=== PATIENT | female | born 1990 | race Caucasian/White ===

== ENCOUNTER 2018-06-29 19:28 | Emergency (ER) | payer OTHER ==
--- NOTE | 2018-06-29 20:40 | ED Physician Documentation ---
PD HPI SYNCOPE - Stated complaint Stated Complaint: SEIZURES / 18WKS PREG - Chief complaint Chief Complaint: Neuro - History obtained from History obtained from: Patient - History of Present Illness Witnessed: Witnessed Timing - onset: Other (tonight, approximately 30-40 minutes [employer]) Duration: Seconds Preceding symptoms: Vision changes, Nausea / vomiting, Light headed Associated symptoms: No: Incontinant of urine, Incontinant of stool, Headache, Chest pain Injury occurred: None Pain level max: 0 Pain level now: 0 Similar symptoms before: No diagnosis (has had previous episodes without diagnosis (also many episodes of syncope when she was a child with w/u including EEG, no diagnosis was achieved)) Recently seen: Not recently seen - Additional information Additional information: approximately 18 weeks (has had US in this showing IUP, per patient). Tonight, while walking in her kitchen, patient experienced nausea, lightheadedness, followed by "black spots" in vision. She sat down and told her she wasn't feeling well. He witnessed her then lose consciousness, appeared to stiffen but he prevented her from falling from the chair. She regained consciousness within 20-30 seconds; she recalls hearing him calling her name as if she was in a dream, and she rapidly returned to normal/baseline level of consciousness. had called 911 while patient had lost consciousness. She is asymptomatic on this evaluation Review of Systems Constitutional: reports: Reviewed and negative Eyes: reports: Decreased vision (resolved). denies: Loss of vision, Photophobia Cardiac: reports: Reviewed and negative Respiratory: reports: Reviewed and negative GI: reports: Nausea. denies: Abdominal Pain, Vomiting : denies: Incontinent Neurologic: reports: Generalized weakness (resolved), Syncope. denies: Focal weakness, Numbness, Headache PD PAST MEDICAL HISTORY - Past Medical History Past Medical History: No Psych: Anxiety - Past Surgical History Past Surgical History: Yes HEENT: Other - Allergies Allergies/Adverse Reactions: Allergies Allergy/AdvReac Type Severity Reaction Status Date / Time No Known Drug Allergies Allergy Verified 06/29/18 19:37 - Social History Does the pt smoke?: No Smoking Status: Never smoker Does the pt drink ETOH?: No Does the pt have substance abuse?: No - Immunizations Immunizations are current?: Yes - POLST Patient has POLST: No PD ED PE NORMAL - Vitals Vital signs reviewed: Yes - General General: Alert and oriented X 3, No acute distress, Well developed/nourished - HEENT HEENT: PERRL, EOMI, Moist mucous membranes - Cardiac Cardiac: RRR, No murmur, No gallop, No rub - Respiratory Respiratory: No respiratory distress, Clear bilaterally - Abdomen Abdomen: Soft, Non tender - Derm Derm: Normal color, Warm and dry - Extremities Extremities: No edema - Neuro Neuro: Alert and oriented X 3, 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 2-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, No motor deficit, No sensory deficit, Normal speech Eye Opening: Spontaneous Motor: Obeys Commands Verbal: Oriented GCS Score: 15 Results - Vitals Vitals: Vital Signs - 24 hr 06/29/18 19:38 Temperature 37.2 C Heart Rate 87 Respiratory 16 Rate Blood Pressure 118/74 O2 Saturation 100 Oxygen O2 Source Room air PD MEDICAL DECISION MAKING - ED course Complexity details: reviewed results, re-evaluated patient, considered differential, d/w patient, d/w family ED course: RN performed bedside FHT, rate 140s Departure - Departure Disposition: 01 Home, Self Care Clinical Impression: Syncope, Condition: Good Instructions: ED Dizziness Syncope Fainting W Pre Follow-Up: CAMERON INFANTE [Primary Care Provider] - Discharge Date/Time: 06/29/18 23:00
[2018-06-29 21:35] LABS: BASOPHILS % (AUTO) 0.2 %; EOSINOPHILS # (AUTO) 0.1 10^3/uL (0.0-0.7); HGB - HEMOGLOBIN 10.9 g/dL (12.0-16.0); LYMPHOCYTES # (AUTO) 0.9 10^3/uL (1.5-3.5); MEAN CORPUSCULAR HEMOGLOBIN 31.7 pg (27.0-31.0); MEAN CORPUSCULAR HGB CONC 35.2 g/dL (32.0-36.0); MEAN CORPUSCULAR VOLUME 90.3 fL (81.0-99.0); MEAN PLATELET VOLUME 8.3 fL (7.9-10.8); MONOCYTES # (AUTO) 0.3 10^3/uL (0.0-1.0); MONOCYTES % (AUTO) 4.1 %; NEUTROPHILS # (AUTO) 6.9 10^3/uL (1.5-6.6); NEUTROPHILS % (AUTO) 83.7 %; PLT - PLATELET COUNT 182 10^3/uL (130-450); RED BLOOD COUNT 3.43 10^6/uL (4.20-5.40); RED CELL DISTRIBUTION WIDTH 12.7 % (12.0-15.0); WHITE BLOOD COUNT 8.2 x10^3/uL (4.8-10.8)
[2018-06-29 21:42] LABS: CALCIUM 8.4 mg/dL (8.5-10.3); CREATININE 0.5 mg/dL (0.4-1.0)
[2018-06-29 22:34] VITALS: BP 111/86
[2018-06-29] MEDS ORDERED: POTASSIUM BICARB 25 MEQ TABLET PO STA (22:46)
== END 2018-06-29 23:00 | disposition home or self-care (01) ==
LOC: EDBD → ED 19:28
DX: O99.89 Other specified diseases and conditions complicating pregnancy, childbirth and the puerperium (principal); R55 Syncope and collapse; Z3A.18 18 weeks gestation of pregnancy
CPT/HCPCS: 36415; 80048; 85025; 99283; A9270

== ENCOUNTER 2018-12-19 13:10 | Emergency (ER) | payer OTHER ==
--- NOTE | 2018-12-19 13:53 | ED Physician Documentation ---
PD HPI FEMALE - Stated complaint Stated Complaint: FEMALE /POST CHILD - Chief complaint Chief Complaint: Abd Pain - History obtained from History obtained from: Patient PD PAST MEDICAL HISTORY - Past Medical History Psych: Anxiety - Past Surgical History Past Surgical History: Yes HEENT: Other - Present Medications Home Medications: Ambulatory Orders Medication Instructions Recorded Confirmed Amox/Clav 875/125 [Augmentin 1 tab PO BID 12/19/18 12/19/18 875/125] Pnv No.121/Iron/Folic Acid 1 tab PO DAILY 12/19/18 12/19/18 [ Multivitamin Tablet] Sertraline [Zoloft] 1 tab PO DAILY 12/19/18 12/19/18 - Allergies Allergies/Adverse Reactions: Allergies Allergy/AdvReac Type Severity Reaction Status Date / Time No Known Drug Allergies Allergy Verified 12/19/18 13:17 - Social History Does the pt smoke?: No Smoking Status: Never smoker Does the pt drink ETOH?: No Does the pt have substance abuse?: No - Immunizations Immunizations are current?: Yes - POLST Patient has POLST: No Results - Vitals Vitals: Vital Signs - 24 hr 12/19/18 13:15 Temperature 37.1 C Heart Rate 82 Respiratory 18 Rate Blood Pressure 132/97 H O2 Saturation 100 Oxygen O2 Source Room air
[2018-12-19 13:58] LABS: BASOPHILS % (AUTO) 0.3 %; EOSINOPHILS # (AUTO) 0.2 10^3/uL (0.0-0.7); EOSINOPHILS % (AUTO) 4.3 %; HGB - HEMOGLOBIN 12.6 g/dL (12.0-16.0); LYMPHOCYTES # (AUTO) 1.1 10^3/uL (1.5-3.5); LYMPHOCYTES % (AUTO) 24.2 %; MEAN CORPUSCULAR HEMOGLOBIN 27.1 pg (27.0-31.0); MEAN CORPUSCULAR HGB CONC 32.5 g/dL (32.0-36.0); MEAN CORPUSCULAR VOLUME 83.5 fL (81.0-99.0); MONOCYTES # (AUTO) 0.3 10^3/uL (0.0-1.0); MONOCYTES % (AUTO) 6.4 %; NEUTROPHILS % (AUTO) 64.8 %; PLT - PLATELET COUNT 253 10^3/uL (130-450); RED BLOOD COUNT 4.64 10^6/uL (4.20-5.40); RED CELL DISTRIBUTION WIDTH 15.3 % (12.0-15.0); WHITE BLOOD COUNT 4.7 x10^3/uL (4.8-10.8)
[2018-12-19 14:06] LABS: INR 1.1 (0.8-1.2); PT - PROTHROMBIN TIME 12.1 secs (9.9-12.6)
[2018-12-19 14:11] LABS: ALBUMIN/GLOBULIN RATIO 1.1 (1.0-2.2); BILIRUBIN,TOTAL 0.7 mg/dL (0.2-1.0); CALCIUM 9.2 mg/dL (8.5-10.3); CREATININE 0.7 mg/dL (0.4-1.0); TOTAL PROTEIN 7.8 g/dL (6.7-8.2)
[2018-12-19 14:13] LABS: PARTIAL THROMBOPLASTIN TIME 30.7 secs (24.9-33.3)
[2018-12-19 14:29] LABS: BILIRUBIN,URINE NEGATIVE (NEGATIVE); GLUCOSE, URINE (UA) NEGATIVE (NEGATIVE); KETONES,URINE (UA) NEGATIVE (NEGATIVE); LEUKOCYTE ESTERASE, URINE NEGATIVE (NEGATIVE); NITRITE,URINE NEGATIVE (NEGATIVE); OCCULT BLOOD,URINE LARGE (NEGATIVE); PH,URINE 6.5 PH (5.0-7.5); PROTEIN,URINE NEGATIVE (NEGATIVE); UROBILINOGEN,URINE 0.2 (NORMAL) E.U./dL (NORMAL)
[2018-12-19 14:44] LABS: CLARITY,URINE HAZY (CLEAR)
[2018-12-19 14:45] LABS: BACTERIA,URINE Rare /HPF (None Seen); RBC,URINE TNTC /HPF (0-5); SQUAMOUS EPITHELIAL CELL,UR RARE Squamous (<= Few)
--- NOTE | 2018-12-19 14:56 | ED Physician Documentation ---
PD HPI FEMALE - Stated complaint Stated Complaint: FEMALE /POST CHILD - Chief complaint Chief Complaint: Abd Pain - History obtained from History obtained from: Patient - History of Present Illness Pain level max: 2 Pain level max: 0 Associated symptoms: No: Fever, Back pain, Pelvic pain, Vaginal discharge, Dysuria - Additional information Additional information: 28-year-old female, 3 para 2 has approximate 4 weeks from a normal spontaneous vaginal delivery. She has had intermittent bleeding since that time. Saw her OB yesterday, normal ultrasound and normal pelvic exam. Had another gush of bleeding last night. Now only a small trickle/spotting. No fevers. No abdominal tenderness. No discharge. Nothing makes it better or worse. Review of Systems Constitutional: denies: Fever GI: denies: Vomiting Skin: denies: Rash Musculoskeletal: denies: Neck pain, Back pain Neurologic: denies: Headache PD PAST MEDICAL HISTORY - Past Medical History Past Medical History: Yes Psych: Anxiety - Past Surgical History Past Surgical History: Yes HEENT: Other - Present Medications Home Medications: Ambulatory Orders Medication Instructions Recorded Confirmed Amox/Clav 875/125 [Augmentin 1 tab PO BID 12/19/18 12/19/18 875/125] Pnv No.121/Iron/Folic Acid 1 tab PO DAILY 12/19/18 12/19/18 [ Multivitamin Tablet] Sertraline [Zoloft] 1 tab PO DAILY 12/19/18 12/19/18 - Allergies Allergies/Adverse Reactions: Allergies Allergy/AdvReac Type Severity Reaction Status Date / Time No Known Drug Allergies Allergy Verified 12/19/18 13:17 - Social History Does the pt smoke?: No Smoking Status: Never smoker Does the pt drink ETOH?: No Does the pt have substance abuse?: No - Immunizations Immunizations are current?: Yes - POLST Patient has POLST: No PD ED PE NORMAL - Vitals Vital signs reviewed: Yes - General General: Alert and oriented X 3, No acute distress, Well developed/nourished - HEENT HEENT: Moist mucous membranes - Neck Neck: Supple, no meningeal sign - Cardiac Cardiac: RRR - Respiratory Respiratory: No respiratory distress, Clear bilaterally - Abdomen Abdomen: Soft, Non tender, Non distended - Female Female : Pt declined - Derm Derm: Warm and dry - Neuro Neuro: Alert and oriented X 3 - Psych Psych: Normal mood, Normal affect Results - Vitals Vitals: Vital Signs - 24 hr 12/19/18 12/19/18 13:15 15:06 Temperature 37.1 C 36.3 C L Heart Rate 82 75 Respiratory 18 18 Rate Blood Pressure 132/97 H 131/91 H O2 Saturation 100 100 Oxygen O2 Source Room air - Labs Labs: Laboratory Tests 12/19/18 12/19/18 12/19/18 13:30 13:50 13:50 WBC 4.7 L RBC 4.64 Hgb 12.6 Hct 38.7 MCV 83.5 MCH 27.1 MCHC 32.5 RDW 15.3 H Plt Count 253 MPV 8.0 Neut # (Auto) 3.0 Lymph # (Auto) 1.1 L [place] # (Auto) 0.3 Eos # (Auto) 0.2 Baso # (Auto) 0.0 Absolute Nucleated RBC 0.00 Nucleated RBC % 0.0 PT 12.1 INR 1.1 APTT 30.7 Sodium Potassium Chloride Carbon Dioxide Anion Gap BUN Creatinine Estimated GFR (MDRD) Glucose Calcium Total Bilirubin AST ALT Alkaline Phosphatase Total Protein Albumin Globulin Albumin/Globulin Ratio Lipase Urine Color YELLOW Urine Clarity HAZY Urine pH 6.5 Ur Specific [place] 1.010 Urine Protein NEGATIVE Urine Glucose (UA) NEGATIVE Urine Ketones NEGATIVE Urine Occult Blood LARGE H Urine Nitrite NEGATIVE Urine Bilirubin NEGATIVE Urine Urobilinogen 0.2 (NORMAL) Ur Leukocyte Esterase NEGATIVE Urine RBC TNTC H Urine WBC 0-3 Ur Squamous Epith Cells RARE Squamous Urine Bacteria Rare Ur Microscopic Review INDICATED Urine Culture Comments NOT INDICATED 12/19/18 13:50 WBC RBC Hgb Hct MCV MCH MCHC RDW Plt Count MPV Neut # (Auto) Lymph # (Auto) [place] # (Auto) Eos # (Auto) Baso # (Auto) Absolute Nucleated RBC Nucleated RBC % PT INR APTT Sodium 138 Potassium 4.2 Chloride 101 Carbon Dioxide 27 Anion Gap 10.0 BUN 10 Creatinine 0.7 Estimated GFR (MDRD) 98 Glucose 90 Calcium 9.2 Total Bilirubin 0.7 AST 28 ALT 30 Alkaline Phosphatase 73 Total Protein 7.8 Albumin 4.0 Globulin 3.8 Albumin/Globulin Ratio 1.1 Lipase 42 Urine Color Urine Clarity Urine pH Ur Specific [place] Urine Protein Urine Glucose (UA) Urine Ketones Urine Occult Blood Urine Nitrite Urine Bilirubin Urine Urobilinogen Ur Leukocyte Esterase Urine RBC Urine WBC Ur Squamous Epith Cells Urine Bacteria Ur Microscopic Review Urine Culture Comments PD MEDICAL DECISION MAKING - ED course Complexity details: reviewed results, re-evaluated patient, considered differential, d/w patient ED course: 28-year-old female with dysfunctional uterine bleeding approximately 4 weeks status post normal spontaneous vaginal delivery. Normal ultrasound yesterday without retained products of conception. Normal pelvic exam. We will not repeat these today. Blood counts are stable. Vital signs are stable. We will continue supportive care. Patient counseled regarding signs and symptoms for which I believe and urgent re-evaluation would be necessary. Patient with good understanding of and agreement to plan and is comfortable going home at this time This document was made in part using voice recognition software. While efforts are made to proofread this document, sound alike and grammatical errors may occur. Departure - Departure Disposition: 01 Home, Self Care Clinical Impression: Dysfunctional uterine bleeding Condition: Good Instructions: ED Bleed Irregular Vaginal Follow-Up: CAMERON INFANTE [Primary Care Provider] - Within 1 week SHENG CALLEJAS [Physician No Access] - Comments: Follow-up with your doctor for further care. Return if you worsen. Your blood counts are normal today. Discharge Date/Time: 12/19/18 15:07
[2018-12-19 15:06] VITALS: BP 131/91
== END 2018-12-19 15:07 | disposition home or self-care (01) ==
LOC: ED 13:10
DX: O72.1 Other immediate postpartum hemorrhage (principal); N93.8 Other specified abnormal uterine and vaginal bleeding
CPT/HCPCS: 36415; 80053; 81001; 81003; 83690; 85025; 85610; 85730; 86850; 86900; 86901; 87086; 99282; 99283

== ENCOUNTER 2019-05-05 19:01 | Emergency (ER) | payer OTHER ==
[2019-05-05 19:26] LABS: BILIRUBIN,URINE NEGATIVE (NEGATIVE); GLUCOSE, URINE (UA) NEGATIVE (NEGATIVE); KETONES,URINE (UA) NEGATIVE (NEGATIVE); LEUKOCYTE ESTERASE, URINE NEGATIVE (NEGATIVE); NITRITE,URINE NEGATIVE (NEGATIVE); OCCULT BLOOD,URINE NEGATIVE (NEGATIVE); PH,URINE 6.5 PH (5.0-7.5); PROTEIN,URINE NEGATIVE (NEGATIVE); UROBILINOGEN,URINE 0.2 (NORMAL) E.U./dL (NORMAL)
[2019-05-05 19:28] LABS: CLARITY,URINE CLEAR (CLEAR); HCG UR QUAL NEGATIVE
--- NOTE | 2019-05-05 21:49 | ED Physician Documentation ---
History of Present Illness - Stated complaint Stated Complaint: FEMALE AND LEFT SHOULDER PX - Chief complaint Chief Complaint: Abd Pain - Additonal information Additional information: This is a 29-year-old female who presents with 4 to 5 days of left upper quadrant pain, which intermittently will radiate up to her shoulder. Patient states that the pain began in absence of any known trauma or inciting event. It is constant dull and located in left upper quadrant. She sometimes feels like there is something moving inside of her abdomen. She denies vomiting, has felt slightly nauseated. No dysuria, no lower abdominal pain. The discomfort radiates up to her chest and shoulder intermittently, but this radiation will resolve completely. Her breathing feels fine, she denies cough or hemoptysis. No history of blood clots or heart problems. Review of Systems Constitutional: denies: Fever Respiratory: denies: Dyspnea GI: reports: Abdominal Pain : denies: Dysuria PD PAST MEDICAL HISTORY - Past Medical History Past Medical History: Yes Cardiovascular: Other Psych: Anxiety - Past Surgical History Past Surgical History: Yes HEENT: Other - Present Medications Home Medications: Ambulatory Orders Medication Instructions Recorded Confirmed Amox/Clav 875/125 [Augmentin 1 tab PO BID 12/19/18 12/19/18 875/125] Pnv No.121/Iron/Folic Acid 1 tab PO DAILY 12/19/18 12/19/18 [ Multivitamin Tablet] Sertraline [Zoloft] 1 tab PO DAILY 12/19/18 12/19/18 RX: raNITIdine [Zantac] 150 mg PO DAILY #14 tablet 05/05/19 - Allergies Allergies/Adverse Reactions: Allergies Allergy/AdvReac Type Severity Reaction Status Date / Time No Known Drug Allergies Allergy Verified 12/19/18 13:17 - Social History Does the pt smoke?: No Smoking Status: Never smoker Does the pt drink ETOH?: No Does the pt have substance abuse?: No - Immunizations Immunizations are current?: Yes - POLST Patient has POLST: No PD ED PE NORMAL - Vitals Vital signs reviewed: Yes - General General: Alert and oriented X 3, No acute distress - HEENT HEENT: PERRL - Neck Neck: Supple, no meningeal sign - Cardiac Cardiac: RRR, No murmur - Respiratory Respiratory: Clear bilaterally - Abdomen Abdomen: Soft, Non distended, Other (Mild left upper quadrant tenderness. Otherwise non-tender. No guarding.) - Derm Derm: Warm and dry - Extremities Extremities: No deformity - Neuro Neuro: Alert and oriented X 3 - Psych Psych: Normal mood, Normal affect Results - Vitals Vitals: Vital Signs - 24 hr 05/05/19 05/05/19 05/05/19 19:07 21:10 23:00 Temperature 37.2 C Heart Rate 82 80 85 Respiratory 14 16 16 Rate Blood Pressure 132/93 H 143/98 H 138/89 H O2 Saturation 100 99 98 05/05/19 23:15 Temperature 36.2 C L Heart Rate 83 Respiratory 21 Rate Blood Pressure 113/62 O2 Saturation 99 Oxygen O2 Source Room air - EKG (time done) 22:07 Other comments: Other comments (Rate 75, rhythm sinus, axis normal, there is no ST segment elevation or depression, no abnormal T wave inversions, intervals are within normal limits.) - Labs Labs: Laboratory Tests 05/05/19 05/05/19 05/05/19 19:15 22:06 22:06 WBC 6.6 RBC 4.36 Hgb 12.4 Hct 38.5 MCV 88.3 MCH 28.4 MCHC 32.2 RDW 14.2 Plt Count 235 MPV 10.9 H Neut # (Auto) 4.3 Lymph # (Auto) 1.7 [place] # (Auto) 0.5 Eos # (Auto) 0.1 Baso # (Auto) 0.0 Absolute Nucleated RBC 0.00 Nucleated RBC % 0.0 Sodium 138 Potassium 3.8 Chloride 105 Carbon Dioxide 23 Anion Gap 10.0 BUN 12 Creatinine 0.6 Estimated GFR (MDRD) 117 Glucose 106 H Calcium 9.1 Total Bilirubin 0.3 AST 16 ALT 11 Alkaline Phosphatase 47 Total Protein 7.6 Albumin 3.6 Globulin 4.0 Albumin/Globulin Ratio 0.9 L Lipase 38 Urine Color YELLOW Urine Clarity CLEAR Urine pH 6.5 Ur Specific [place] 1.020 Urine Protein NEGATIVE Urine Glucose (UA) NEGATIVE Urine Ketones NEGATIVE Urine Occult Blood NEGATIVE Urine Nitrite NEGATIVE Urine Bilirubin NEGATIVE Urine Urobilinogen 0.2 (NORMAL) Ur Leukocyte Esterase NEGATIVE Ur Microscopic Review NOT INDICATED Urine Culture Comments NOT INDICATED Urine HCG, Qual NEGATIVE - Rads (name of study) Chest Radiology: Other (No acute abnormality) PD MEDICAL DECISION MAKING - ED course Complexity details: considered differential (gastritis, GERD, pancreatitis, ACS, pneumonia, fracture, muscle strain, enteritis, pneumothorax) ED course: On exam patient is well appearing, her abdomen is benign with mild LUQ tenderness. Vital signs are unremarkable. CBC, CMP, lipase, HCG, unremarkable. EKG shows no signs of dysrhythmia or ischemia, and CXR is unrevealing. Her history of pain that resolves completely is not compatible with PE, and she has no signs of PE or DVT on exam. She is very low risk for CAD and her EKG is reassuring. I discussed that the cause of her pain is unclear, though gastritis/PUD/GERD or musculoskeletal cause is possible. I recommended a trial of ranitidine as well as tylenol for discomfort, and close follow up with her PCP. I reviewed return precautions and patient was discharged home. Departure - Departure Disposition: 01 Home, Self Care Clinical Impression: Abdominal pain Condition: Good Instructions: ED Abdominal Pain Unkn Cause Follow-Up: CAMERON INFANTE [Primary Care Provider] - Within 1 week Prescriptions: RX: raNITIdine [Zantac] 150 mg PO DAILY #14 tablet Comments: You were seen today for abdominal pain, that radiates up to your chest. Our work-up here was reassuring. There were no signs of obvious problems on your chest x-ray, EKG, or your labs. You may try the ranitidine in case your pain it may be caused by gastritis. You may also take Tylenol. If you develop worsening or changing abdominal pain, persistent vomiting, or other concerning symptoms, please return to the emergency department. Discharge Date/Time: 05/05/19 23:18
[2019-05-05 22:13] LABS: BASOPHILS % (AUTO) 0.3 %; EOSINOPHILS # (AUTO) 0.1 10^3/uL (0.0-0.7); EOSINOPHILS % (AUTO) 1.1 %; HGB - HEMOGLOBIN 12.4 g/dL (12.0-16.0); LYMPHOCYTES # (AUTO) 1.7 10^3/uL (1.5-3.5); LYMPHOCYTES % (AUTO) 26.3 %; MEAN CORPUSCULAR HEMOGLOBIN 28.4 pg (27.0-31.0); MEAN CORPUSCULAR HGB CONC 32.2 g/dL (32.0-36.0); MEAN CORPUSCULAR VOLUME 88.3 fL (81.0-99.0); MEAN PLATELET VOLUME 10.9 fL (7.9-10.8); MONOCYTES # (AUTO) 0.5 10^3/uL (0.0-1.0); NEUTROPHILS # (AUTO) 4.3 10^3/uL (1.5-6.6); PLT - PLATELET COUNT 235 10^3/uL (130-450); RED BLOOD COUNT 4.36 10^6/uL (4.20-5.40); RED CELL DISTRIBUTION WIDTH 14.2 % (12.0-15.0); WHITE BLOOD COUNT 6.6 x10^3/uL (4.8-10.8)
[2019-05-05 22:25] LABS: ALBUMIN 3.6 g/dL (3.2-5.5); ALBUMIN/GLOBULIN RATIO 0.9 (1.0-2.2); BILIRUBIN,TOTAL 0.3 mg/dL (0.2-1.0); CALCIUM 9.1 mg/dL (8.5-10.3); CREATININE 0.6 mg/dL (0.4-1.0); TOTAL PROTEIN 7.6 g/dL (6.7-8.2)
--- NOTE | 2019-05-05 22:37 | XRAY Report ---
Reason: left lower chest/left upper abdominal pain Procedure Date: 05/05/2019 Accession Number: [id number] / [id number] Procedure: XR - Chest 2 View X-Ray CPT Code: 66542 FULL RESULT: EXAM: CHEST RADIOGRAPHY EXAM DATE: 05/05/2019 10:16 PM. CLINICAL HISTORY: Left lower chest/left upper abdominal pain. COMPARISON: None. TECHNIQUE: 2 views. FINDINGS: Lungs/Pleura: No alveolar consolidation or pleural effusion seen. No pneumothorax. Mediastinum: Heart and mediastinal contours are unremarkable. Other: None. IMPRESSION: 1. No acute abnormality seen in the chest. RADIA
[2019-05-05 23:19] VITALS: BP 113/62
== END 2019-05-05 23:18 | disposition home or self-care (01) ==
LOC: ED 19:01
DX: R10.12 Left upper quadrant pain (principal); R07.9 Chest pain, unspecified; M25.512 Pain in left shoulder
CPT/HCPCS: 36415; 71046; 80053; 81001; 81003; 81025; 83690; 85025; 87086; 93005; 99283; 99284